=== PATIENT | female | born 1980 | race Two or more races ===

== ENCOUNTER 2020-03-04 14:30 | Emergency (ER) | payer OTHER ==
[~2020-03-04] VITALS: Ht 149.9 cm; Wt 66.2 kg
== END 2020-03-04 22:34 | disposition home or self-care (01) ==
LOC: ER 14:30
DX: R50.9 Fever, unspecified (principal); Z03.818 Encounter for observation for suspected exposure to other biological agents ruled out

== ENCOUNTER 2020-03-08 05:40 | Emergency (ER) | payer OTHER ==
[~2020-03-08] VITALS: Ht 149.9 cm; Wt 67.1 kg
[2020-03-08] MEDS ORDERED: AIRBORNE EFFER1 EACH PO (10:21)
[2020-03-08] MEDS ORDERED: PEPCID AC20 MG PO (10:21)
== END 2020-03-08 10:52 | disposition home or self-care (01) ==
LOC: ER 05:40
DX: B34.9 Viral infection, unspecified (principal); Z03.818 Encounter for observation for suspected exposure to other biological agents ruled out